=== PATIENT | male | born 1985 | race Caucasian/White ===

== ENCOUNTER 2022-11-14 15:06 | Inpatient (IN) | payer MEDICARE ==
[~2022-11-14] VITALS: Ht 180.3 cm; Wt 68.2 kg
[2022-11-14] MEDS ORDERED: ABIL1INJ2 IM (17:27)
[2022-11-14] MEDS ORDERED: MOM 30ML SUSPENSION UDC PO PRN (18:25)
[2022-11-14] MEDS ORDERED: ACETAMINOPHEN TAB 650MG DOSE (2X325MG) PO PRN (18:25)
[2022-11-14] MEDS ORDERED: MAALOX 30 ML SUSP *UDC PO PRN (18:25)
[2022-11-14] MEDS ORDERED: NICOTINE 21MG/24HR 1 EA TRANSDERMAL TD SCH (20:00)
[2022-11-14] MEDS ORDERED: risperiDONE 1 MG TAB PO SCH (21:00)
[2022-11-14] MEDS: traZODone 50 MG TAB PO PRN (21:26)
[2022-11-15 05:54] VITALS: BP 110/65
[2022-11-15] MEDS ORDERED: BENZTROPINE MESYLATE 2MG/2ML VIAL IM ONE (10:50)
[2022-11-15] MEDS ORDERED: diphenhydrAMINE 50MG/ML VIAL IM ONE (10:55)
[2022-11-15] MEDS ORDERED: BENZTROPINE 1 MG TAB PO ONE (11:00)
[2022-11-15] MEDS: diphenhydrAMINE 50MG/ML VIAL IM PRN ×2 (14:23→20:26)
[2022-11-15 16:13] VITALS: BP 134/88
[2022-11-15] MEDS: OLANZapine ORAL DISINTEGRATING TAB 5MG PO PRN (16:43)
[2022-11-15] MEDS ORDERED: LORazepam 1 MG TAB PO ONE (18:40)
[2022-11-15] MEDS: traZODone 50 MG TAB PO PRN (20:25)
[2022-11-16 06:38] VITALS: BP 132/77
[2022-11-16] MEDS ORDERED: MED REC COMMENT (08:32)
[2022-11-16] MEDS ORDERED: HOME MED LIST COMPLETE! XX SCH (08:35)
[2022-11-16] MEDS: diphenhydrAMINE 50MG/ML VIAL IM PRN ×2 (09:12→15:27)
[2022-11-16] MEDS: OLANZapine ORAL DISINTEGRATING TAB 5MG PO PRN ×2 (12:30→18:18)
[2022-11-16 16:04] VITALS: BP 125/79
[2022-11-16] MEDS ORDERED: NICOTINE 21MG/24HR 1 EA TRANSDERMAL TD PRN (19:55)
[2022-11-16] MEDS: traZODone 50 MG TAB PO PRN (20:05)
[2022-11-17] MEDS: diphenhydrAMINE 50MG/ML VIAL IM PRN ×2 (00:09→11:20)
[2022-11-17 06:41] VITALS: BP 134/74
[2022-11-17] MEDS ORDERED: NICO21PAT TD (08:43)
[2022-11-17] MEDS ORDERED: NICOTINE 21MG/24HR 1 EA TRANSDERMAL TD SCH (09:00)
[2022-11-17] MEDS: OLANZapine ORAL DISINTEGRATING TAB 5MG PO PRN (11:20)
[2022-11-17] MEDS ORDERED: ABIL1INJ2 IM (11:40)
== END 2022-11-17 13:35 | disposition home or self-care (01) | DRG 885 ==
LOC: M ED 15:06 → M ED INP 18:25 → M PSY 20:21
PROVIDERS: ADMIT Psychiatry & Neurology Psychiatry; ATTEND Psychiatry & Neurology Psychiatry
DX: F31.2 Bipolar disorder, current episode manic severe with psychotic features (principal); Z88.8 Allergy status to other drugs, medicaments and biological substances; Z91.128 Patient's intentional underdosing of medication regimen for other reason